=== PATIENT | female | born 1950 | race Caucasian/White ===

== ENCOUNTER 2022-04-03 14:59 | Emergency (ER) | payer MEDICARE ==
[2022-04-03] MEDS ORDERED: Sodium Chloride 0.9% 1,000 ML IV ONE (15:36)
[2022-04-03 16:30] LABS: CARBON DIOXIDE,CO2 27.8 mmol/L (21.0-32.0); POTASSIUM,K 4.1 mmol/L (3.5-5.1)
[2022-04-03] MEDS ORDERED: Nitrofurantoin Monohydrate/Macrocrystalline 100 MG Cap PO ONE (18:10)
== END 2022-04-03 20:03 | disposition home or self-care (01) ==
LOC: MW.ED 14:59
DX: F91.9 Conduct disorder, unspecified (principal); N30.00 Acute cystitis without hematuria
CPT/HCPCS: 36415; 80053; 81001; 85025; 87086; 99285; A9270; J7030; 99284